=== PATIENT | male | born 1970 | race Caucasian/White ===

== ENCOUNTER → 2017-01-10 | Outpatient (CLI) | payer OTHER ==
[~2017-01-10] MED LIST: ASPI81TA85 PO; ASTELIN; BREO1INH INH; CIPR-250 PO; EFFE150C PO; FLOM5CAP PO; FLON1SPR; GABA800T PO; HUMA100I3 SC; HYDR-3713 PO; INSULADS SC; INSULANT SC; INVO100T PO; LISI10TA4 PO; LOVA40TA PO; METF500T4 PO; METF750T PO; METH75TA PO; MINI2CAP PO; MULTCAP PO; NALT50TA4 PO; NEUR600T PO; NORC5TAB PO; OMEP40CA2 PO; PREV30CA11 PO; TOPA100T8 PO; VITA10002 PO; VITA1CAP25 PO; WELL75TA PO; ZANA4CAP PO; ZYRT10CA PO
--- NOTE | 2017-01-10 11:58 | REP ---
Clinical: Spondylosis. Technique: AP, lateral, bilateral oblique, flexion/extension, and coned-down views of the lumbosacral spine. Comparison: 08/20/2016. Findings: Alignment and lordosis maintained. No acute fracture / compression injury or subluxation. Moderate and relatively stable multilevel degenerative changes include anterior osteophytes, endplate sclerosis, disc space narrowing and hypertrophic facet changes. Findings are most pronounced at the L3-4 through L5-S1 levels. Impression: Moderate multilevel degenerative changes similar to prior examination. Signed by Malcolm Cox MD 01/10/2017 11:49 A
--- NOTE | 2017-01-10 12:00 | REP ---
Clinical: Cervical spondylosis. Technique: AP, lateral, flexion/extension, open-mouth, bilateral oblique views. Comparison: 08/18/2016. Findings: The patient is again noted to be status post anterior fusion at the C6-C7 level. Mild straightening of normal lordosis is appreciated along with moderate to early advanced multilevel degenerative disc osteophyte complexes. Findings include anterior spurring, endplate sclerosis and disc space narrowing at multiple levels. The spinous processes are intact. Open mouth view demonstrates normal C1-C2 articulation and odontoid process. Oblique views demonstrate patent neural foramen. Impression: Moderate multilevel degenerative changes. No acute fracture / compression injury or subluxation. Signed by Malcolm Cox MD 01/10/2017 11:51 A
== END ==
LOC: M LAB 10:55
PROVIDERS: ATTEND Neurological Surgery
DX: M47.892 Other spondylosis, cervical region (principal); M47.896 Other spondylosis, lumbar region; M50.30 Other cervical disc degeneration, unspecified cervical region

== ENCOUNTER → 2017-01-10 | Outpatient (CLI) | payer OTHER ==
--- NOTE | 2017-01-13 11:05 | SLEEPHOME ---
DATE OF PROCEDURE: 01/10/2017 ORDERED BY: Bia Calvillo NP Diagnostic home sleep testing was performed due to concern for the obstructive sleep apnea syndrome. For testing, a NOX-T3 respiratory monitoring device was used. Continuous record was made of pulse, oxygen saturation, airflow, chest and abdominal strain, and body position. 9 hours and 59 minutes of data were reviewed. Of these, 5 hours and 27 minutes were marked as time in bed. During the interval marked time in bed, there were 62 respiratory events identified of 10 seconds in duration or greater for a respiratory event index of 11.4. The events were primarily obstructive. However, 31 respiratory events were identified as mixed or central. The patient's baseline pulse rate was 63 beats per minute. Pulse rate ranged 49-116. Baseline oxygen saturation 94%. Lowest oxygen saturation 81%. Testing was performed in both the supine and non-supine positions. IMPRESSION: Abnormal home sleep testing with repetitive respiratory events and oxygen desaturation to 81% with a respiratory event index of 11.4 is consistent with the obstructive sleep apnea syndrome. Given the occurrence of central events, a complex disorder is suspected. RECOMMENDATION: The patient should be encouraged to undergo a formal sleep evaluation and in-laboratory pressure titration in light of the occurrence of central apneas and significant oxygen desaturations.
== END ==
LOC: M SLEEP HO 09:57
PROVIDERS: ATTEND Nurse Practitioner Adult Health
DX: G47.33 Obstructive sleep apnea (adult) (pediatric) (principal)

== ENCOUNTER → 2017-04-27 | Day surgery (SDC) | payer OTHER ==
[~2017-04-27] VITALS: Ht 182.9 cm; Wt 81.6 kg
[~2017-04-27] MED LIST changes: +BENT20TA PO; +EPINEPHrine 1MG/ML INJ 30ML MD-VIAL As Ordered ONE; +GLYCOPYRROLATE INJ 0.2 MG/ML 2 ML VIAL As Ordered ONE; +LIDOCAINE 2% INJ 100 MG/5 ML SDV (FOR ANES.) As Ordered ONE; +LIDOCAINE W/EPINEPHRINE 1% 20ML VIAL As Ordered ONE; +LR 1,000 ML IV ONE; +LR 1,000 ML IV SCH; +METHYLENE BLUE 0.5% (5MG/ML) 10 ML AMP (PROVAYBLUE)(Q9968 PER 1MG) As Ordered ONE; +MIDAZOLAM INJ 2 MG/2 ML VIAL (J2250) As Ordered ONE; +NEOSTIGMINE 1MG/ML 5 ML SYRINGE (J2710) As Ordered ONE; +NORC1TAB4 PO; -NORC5TAB PO; +ONDANSETRON 4MG/2ML VIAL (J2405) As Ordered ONE; +ONDANSETRON 4MG/2ML VIAL (J2405) IV PRN; +PERCOCET 5MG/325MG TAB As Ordered ONE; +PERCOCET 5MG/325MG TAB PO PRN; +PROPOFOL 200 MG/20 ML VIAL As Ordered ONE; +ROCURONIUM BROMIDE 50 MG/5 ML VIAL As Ordered ONE; +SODIUM CHLORIDE 0.9% NASAL GEL 15MG (AYR) As Ordered ONE; +dexameTHASONE 4 MG/ML 1ML VIAL (J1100) IV ONE; +fentaNYL 100 MCG/2 ML INJECTION (J3010) IV PRN; +fentaNYL 250 MCG/5 ML INJECTION (J3010) As Ordered ONE
[2017-04-27 09:29] LABS: BLOOD UREA NITROGEN 7 MG/DL (7-18); GLOMERULAR FILTRATION RATE > 60.0 (>60); GLUCOSE, FASTING 213 MG/DL (70-105); POTASSIUM SERUM 3.6 MEQ/L (3.5-5.1); SODIUM LEVEL 141 MEQ/L (136-145)
[2017-04-27 09:30] LABS: ANION GAP 5 MEQ/L (8-16); CALCIUM LEVEL 8.6 MG/DL (8.5-10.1); CARBON DIOXIDE LEVEL 34 MEQ/L (21-32); CHLORIDE LEVEL 102 MEQ/L (98-107)
[2017-04-27] MEDS: EPINEPHrine INJ 1 MG/ML 1ML AMP As Ordered ONE ×2 (09:56→10:50)
[2017-04-27 13:25] VITALS: BP 132/77
--- NOTE | 2017-04-27 20:52 | ECGEPIP ---
Stationary ECG Study [facility] Test Date: 2017-04-27 Pat Name: ROXIE RAHMAN Department: Room: - Gender: M Corporate Legal Manager: ÁNGEL : 1970 Requested By: NOLAN KUMAR Order Number: [id number] Reading MD: Gume Al Measurements Intervals [place] Rate: 65 P: 38 RI: 134 QRS: 24 QRSD: 86 T: 16 QT: 433 QTc: 453 Interpretive Statements SINUS RHYTHM Nonspecific ST-T abnormalities. Electronically Signed On 04-27-2017 20:52:23 EDT by Gume Al
== END | disposition home or self-care (01) ==
LOC: M SDC 07:55
PROVIDERS: ATTEND Otolaryngology
DX: J34.2 Deviated nasal septum (principal); E11.9 Type 2 diabetes mellitus without complications; Z88.8 Allergy status to other drugs, medicaments and biological substances; Z88.1 Allergy status to other antibiotic agents; Z79.899 Other long term (current) drug therapy; J45.909 Unspecified asthma, uncomplicated; N40.0 Benign prostatic hyperplasia without lower urinary tract symptoms; K21.9 Gastro-esophageal reflux disease without esophagitis

== ENCOUNTER → 2017-06-01 | Outpatient (CLI) | payer OTHER ==
[~2017-06-01] MED LIST changes: -EPINEPHrine 1MG/ML INJ 30ML MD-VIAL As Ordered ONE; -GLYCOPYRROLATE INJ 0.2 MG/ML 2 ML VIAL As Ordered ONE; -LIDOCAINE 2% INJ 100 MG/5 ML SDV (FOR ANES.) As Ordered ONE; -LIDOCAINE W/EPINEPHRINE 1% 20ML VIAL As Ordered ONE; -LR 1,000 ML IV ONE; -LR 1,000 ML IV SCH; -METHYLENE BLUE 0.5% (5MG/ML) 10 ML AMP (PROVAYBLUE)(Q9968 PER 1MG) As Ordered ONE; -MIDAZOLAM INJ 2 MG/2 ML VIAL (J2250) As Ordered ONE; -NEOSTIGMINE 1MG/ML 5 ML SYRINGE (J2710) As Ordered ONE; -ONDANSETRON 4MG/2ML VIAL (J2405) As Ordered ONE; -ONDANSETRON 4MG/2ML VIAL (J2405) IV PRN; -PERCOCET 5MG/325MG TAB As Ordered ONE; -PERCOCET 5MG/325MG TAB PO PRN; +PREV1CAP PO; -PREV30CA11 PO; -PROPOFOL 200 MG/20 ML VIAL As Ordered ONE; -ROCURONIUM BROMIDE 50 MG/5 ML VIAL As Ordered ONE; -SODIUM CHLORIDE 0.9% NASAL GEL 15MG (AYR) As Ordered ONE; +TOPA100T12 PO; -TOPA100T8 PO; -dexameTHASONE 4 MG/ML 1ML VIAL (J1100) IV ONE; -fentaNYL 100 MCG/2 ML INJECTION (J3010) IV PRN; -fentaNYL 250 MCG/5 ML INJECTION (J3010) As Ordered ONE
--- NOTE | 2017-06-01 12:25 | REP ---
CERVICAL SPINE, SEVEN VIEWS: HISTORY: Spondylosis. COMPARISON: 01/10/2017 The patient is status post C6-7 anterior spinal fusion. A fixation plate and bone graft material are present. There is no acute fracture or subluxation. The C4-5 and C5-6 intervertebral discs are decreased in height consistent with disc degeneration. Osteophytes are present on C2 through C5. There is narrowing of the C6 neural foramina secondary to uncinate process hypertrophy. IMPRESSION: 1. The patient is status post C6-7 anterior spinal fusion. There is anatomic alignment. 2. There is cervical spondylosis at the C2-3 through C6-7 levels. Signed by Rosalino Hills MD 06/01/2017 12:48 P
--- NOTE | 2017-06-01 12:29 | REP ---
LUMBAR SPINE, SEVEN VIEWS: HISTORY: Spondylosis. COMPARISON: 01/10/2017. There is no acute fracture or subluxation. The intervertebral discs are decreased in height consistent with disc degeneration. Osteophytes are present throughout the lumbar spine. There is narrowing of the L3-4 through L5-S1 facet joints with associated sclerosis. IMPRESSION: Degenerative change as described above. Signed by Rosalino Hills MD 06/01/2017 12:38 P
== END ==
LOC: M RAD 10:57
PROVIDERS: ATTEND Neurological Surgery
DX: M47.892 Other spondylosis, cervical region (principal); M47.896 Other spondylosis, lumbar region; M25.78 Osteophyte, vertebrae